=== PATIENT | male | born 1965 | race Caucasian/White ===

== ENCOUNTER → 2018-02-04 20:00 | Outpatient (CLI) | payer OTHER, SELFPAY | PROVIDERS: Family Provider Family Medicine; PCP Family Medicine; Visit Provider Internal Medicine Critical Care Medicine | DX: G47.33 Obstructive sleep apnea (adult) (pediatric) (principal) | CPT/HCPCS: 95811 ==

== ENCOUNTER 2018-04-09 21:29 | Emergency (ER) | payer OTHER, SELFPAY ==
[2018-04-09 21:30] VITALS: BP 142/88; PULSE 120; RESP 20; TEMP 37.3; O2SAT 95; BMI 33.6
[2018-04-09 21:34] VITALS: PULSE 117
--- NOTE | 2018-04-09 21:43 | EKG12_ITS ---
Test Reason : CP Blood Pressure : / mmHG Vent. Rate : 115 BPM Atrial Rate : 115 BPM P-R Int : 152 ms QRS Dur : 088 ms QT Int : 320 ms P-R-T Axes : 023 -26 -03 degrees QTc Int : 442 ms Sinus tachycardia Otherwise normal ECG Confirmed by NICOLE CAMPBELL, JIA ([id number]), senior technical editor MAYELIN FUENTES ([id number] on 04/12/2018 2:30:05 PM Referred By: KATIE Confirmed By:JIA RIVERA MD
--- NOTE | 2018-04-09 21:50 | RAD_ITS ---
STUDY: X-RAY CHEST REASON FOR EXAM: Male, 52 years old. Chest pain. TECHNIQUE: Portable chest. COMPARISON: 02/11/2013. FINDINGS: The lungs are clear and expanded. There is no demonstrated pleural abnormality. Normal size heart. Normal mediastinum and jae. Normal visualized pulmonary arteries. Normal visualized aortic arch and descending thoracic aorta. There are old healed right rib fractures. Soft tissues and bony structures are otherwise unremarkable. RAD/Chest 1 View (Portable) IMPRESSION: No acute process. Electronically Signed: Iman Alcala MD at 22:56 EST Tel , Service support ,
[2018-04-09 21:53] LABS: Absolute Lymphocyte Count 0.84 X10^3/ul (0.83-4.51); Absolute Neutrophil Count 6.8 X10^3/uL (2.0-7.7); Basophil# 0.03 X10^3/uL; Basophil% 0.4 % (0-1); Eosinophil# 0.04 X10^3/uL; Eosinophils% 0.5 % (0-5); Hemoglobin 16.5 g/dl (13.0-16.5); Lymphocyte # 0.84 X10^3/ul (4.0); Lymphocyte % 10.2 % (19-41); Mean Corp Hgb Conc 34.4 g/gl (32-36); Mean Corpuscular Hgb 30.3 pg (27.0-32.0); Mean Corpuscular Volume 88.2 fL (80-94); Mean Platelet Vol. 9.3 fl (6.2-12.0); Monocyte# 0.49 X10^3/uL; Monocyte% 5.9 % (0-10); Neutrophil # 6.83 X10^3/uL (2.7-7.7); POSITIVE COUNT NO; POSITIVE DIFFERENTIAL NO; POSITIVE MORPHOLOGY NO; Platelet Count 190 K/mm3 (150-450); RBC Distribution Width CV 12.9 % (11.6-14.6); RBC Distribution Width SD 41.7 fl (35.1-43.9); Red Blood Count 5.44 M/mm3 (4.6-6.2); White Blood Count 8.2 K/mm3 (4.4-11.0)
--- NOTE | 2018-04-09 22:00 | ED.DCSUM_ITS ---
- ER Visit Summary Date of Service: 04/09/18 Chief Complaint: [] Fever body aches concern for A. fib History of Present Illness: The patient is a 52 M [] history of A. fib that is been well controlled, he is not on blood thinners, he indicates today he came home with diffuse body aches sense of fever and chills and a mild headache he indicates he was concerned he had A. fib as his heart rate was about 110 he was brought to the hospital on arrival on the monitoring manager he is in a sinus rhythm has a low-grade temperature of 100, he has had no chest pain abdominal pain numbness 6 paresthesias no vomiting diarrhea he did not get the flu vaccination he has had no exposures he is eating and drinking well Physical Examination: [] 142/88, temperature is 100 heart rate is 110 sinus rhythm on the monitor General, no distress resting comfortably HEENT is generally unremarkable his minimal rhinorrhea his throat is minimally red he denies sore throat The neck is supple no adenopathy Cardiovascular, regular rate and rhythm Lungs, clear bilateral Abdomen, soft nontender Extremities, no clubbing cyanosis or edema Neurologic, awake alert answering questions appropriately moving all 4 extremities EKG shows a sinus rhythm nothing acute he complains of the body aches and a low-grade fever rhinorrhea and a mild headache IV fluids screening labs Patient's chest x-ray to my review was unremarkable, the screening labs are all unremarkable as well, Duration observation, he is resting comfortably bed he no longer has the body aches of the headache he feels much better his heart rate is about 95 sinus rhythm, the nasal flu swab is still pending however he does not wish to be yoana jairo with Tamiflu should be positive he is feeling much better wants to go home so that result will be on the computer he will continue to manage his myalgias and low-grade fevers with Tylenol Motrin and follow-up with his outpatient providers in the next few days return for change in symptoms Test Results: [] Emergency Department Course and Treatment: [] Treatment Plan: [] Disposition: [] Home stable Impression: [] Febrile illness with body aches improved This note was generated with [employer] software. It may contain incorrect words, spelling, and punctuation that were not noted in review of the chart prior to signing ED Disposition - Plan for ED Patient: Chief Complaint: Chest Pain Referrals: Tobi Loza III, MD [Primary Care Provider] -
[2018-04-09 22:15] LABS: Anion Gap 7 (5-15); BUN 12 mg/dL (7-18); BUN/Creat Ratio 10.9 RATIO (10-20); Calcium,Total 8.8 mg/dL (8.5-10.1); Chloride 104 mmol/L (98-107); EST Glomerular Filtration Rate 75 mL/min (>60); Est Glom Filt Rate - Afr Amer 91 mL/min (>60); Estimated Creatinine Clearance 92.37 ml/min; Glucose 99 mg/dL (74-106); Potassium 3.9 mmol/L (3.5-5.1); Sodium Level 135 mmol/L (136-145)
[2018-04-09] MEDS: 0.9% Normal Saline 1,000 ML 999 ML IV (22:20)
[2018-04-09] MEDS: Acetaminophen 500 MG Tablet 1000 MG PO (22:20)
[2018-04-09] MEDS: Ondansetron 4 MG/2 ML Vial IV (22:20)
[2018-04-09] MEDS: morphine 8 MG/ML Syringe IV (22:20)
--- NOTE | 2018-04-09 22:58 | ED.DEP ---
ED Disposition - Plan for ED Patient: Chief Complaint: Chest Pain Instructions: ED Fever Control, ED Fever Unconf Cause Referrals: Tobi Loza III, MD [Primary Care Provider] -
[2018-04-09 23:43] VITALS: BP 130/70; PULSE 81; RESP 20; O2SAT 98
--- NOTE | 2018-04-09 23:44 | ED.RN ---
THIS NURSE REVIEWED D/C INSTRUCTIONS WITH PT. PT VERBALIZED UNDERSTANDING OF INSTRUCTIONS. IV D/C. IV CATHETER INTACT. PT TOLERATED WELL. PT DENIES FURTHER NEEDS OR QUESTIONS AT THIS TIME. PT AMBULATES FROM ROOM ON OWN WITHOUT ASSISTANCE FROM STAFF
== END 2018-04-09 23:44 | disposition home or self-care (01) ==
PROVIDERS: Emergency Provider Emergency Medicine; Family Provider Family Medicine; PCP Family Medicine
DX: R50.9 Fever, unspecified (principal); R51 Headache; M79.10 Myalgia, unspecified site; J34.89 Other specified disorders of nose and nasal sinuses; I48.91 Unspecified atrial fibrillation; Z79.82 Long term (current) use of aspirin
CPT/HCPCS: 71045; 80048; 84484; 85025; 87804; 93005; 96361; 96374; 96375; 99285; J7030; A4216; J2405

== ENCOUNTER 2018-08-31 19:28 | Emergency (ER) | payer OTHER, SELFPAY ==
[2018-06-12 14:21] VITALS: BMI 34.7
[2018-08-31 19:29] VITALS: BP 143/87; PULSE 98; RESP 16; TEMP 36.4; O2SAT 98; BMI 33.5
--- NOTE | 2018-08-31 19:45 | ED.VISSUMM ---
- ER Visit Summary Date of Service: 08/31/18 Chief Complaint: Finger laceration History of Present Illness: The patient is a 53 M who states that he was filled today working he went to coil up a letter. This ended up causing a laceration to the volar aspect of the right ring finger at the DIP joint. Unsure of last tetanus. Bleeding controlled at home. He did wash it with hydrogen peroxide and water. Physical Examination: Afebrile vital signs are stable There is a 1 cm laceration just proximal to the DIP joint on the volar surface of the right ring finger. Direct testing of the superficialis and profundus flexor tendons demonstrated they were intact. Neurovascular intact. Emergency Department Course and Treatment: Tetanus was updated with Adacel. Wound was locally anesthetized using 1% lidocaine. It was washed with Shur-Clens and explored and irrigated. It was closed using #3 simple interrupted 4-0 Ethilon sutures. Wound care discussed with patient. Impression: 1. 1 cm right ring finger laceration with repair 2. Tetanus update This note was generated with [employer] dictation software. It may contain incorrect words, spelling, and punctuation that were not noted in review of the chart prior to signing ED Disposition - Plan for ED Patient: Disposition: Home or Assisted Living Instructions: ED Laceration Hand Referrals: Tobi Loza III, MD [Primary Care Provider] - 10 Day for suture removal
--- NOTE | 2018-08-31 19:48 | ED.DCSUM_ITS ---
- ER Visit Summary Date of Service: 08/31/18 Chief Complaint: Finger laceration History of Present Illness: The patient is a 53 M who states that he was filled today working he went to coil up a letter. This ended up causing a laceration to the volar aspect of the right ring finger at the DIP joint. Unsure of last tetanus. Bleeding controlled at home. He did wash it with hydrogen peroxide and water. Physical Examination: Afebrile vital signs are stable There is a 1 cm laceration just proximal to the DIP joint on the volar surface of the right ring finger. Direct testing of the superficialis and profundus flexor tendons demonstrated they were intact. Neurovascular intact. Emergency Department Course and Treatment: Tetanus was updated with Adacel. Wound was locally anesthetized using 1% lidocaine. It was washed with Shur-Clen s and explored and irrigated. It was closed using #3 simple interrupted 4-0 Ethilon sutures. Wound care discussed with patient. Impression: 1. 1 cm right ring finger laceration with repair 2. Tetanus update This note was generated with [email or web address] dictation software. It may contain incorrect words, spelling, and punctuation that were not noted in review of the chart prior to signing ED Disposition - Plan for ED Patient: Disposition: Home or Assisted Living Instructions: ED Laceration Hand Referrals: Tobi Loza III, MD [Primary Care Provider] - 10 Day for suture removal
[2018-08-31] MEDS: Diphth,Pertuss(Acell),Tet Vac 0.5 ML Vial IM (19:50)
[2018-08-31 20:18] VITALS: BP 138/99; PULSE 78; RESP 16; O2SAT 97
== END 2018-08-31 20:20 | disposition home or self-care (01) ==
PROVIDERS: Emergency Provider Emergency Medicine; Family Provider Family Medicine; PCP Family Medicine
DX: S61.214A Laceration without foreign body of right ring finger without damage to nail, initial encounter (principal); W45.8XXA Other foreign body or object entering through skin, initial encounter; Y93.9 Activity, unspecified; Y92.9 Unspecified place or not applicable; Z23 Encounter for immunization; I10 Essential (primary) hypertension; G47.33 Obstructive sleep apnea (adult) (pediatric); I48.91 Unspecified atrial fibrillation; Z79.82 Long term (current) use of aspirin; Z79.899 Other long term (current) drug therapy
CPT/HCPCS: 12001; 90715; 99284